=== PATIENT | female | born 1995 | race Caucasian/White ===

== ENCOUNTER → 2020-01-16 | Outpatient (CLI) | payer MEDICAID | LOC: CARD 13:48 | PROVIDERS: ATTEND Family Medicine | DX: I35.1 Nonrheumatic aortic (valve) insufficiency (principal); Z87.74 Personal history of (corrected) congenital malformations of heart and circulatory system | CPT/HCPCS: 93306 ==

== ENCOUNTER → 2020-10-06 | Outpatient (CLI) | payer MEDICAID | LOC: LAB FS 11:15 | PROVIDERS: ATTEND Family Medicine | DX: A74.9 Chlamydial infection, unspecified (principal) | CPT/HCPCS: 36415; 87491; 87591 ==

== ENCOUNTER → 2021-04-06 | Outpatient (CLI) | payer MEDICAID | LOC: LAB FS 16:12 | PROVIDERS: ATTEND Family Medicine | DX: N92.5 Other specified irregular menstruation (principal) | CPT/HCPCS: 36415; 84702 ==

== ENCOUNTER → 2021-04-14 | Outpatient (CLI) | payer MEDICAID | LOC: LABNPT 14:48 | PROVIDERS: ATTEND Registered Nurse Emergency | DX: R35.0 Frequency of micturition (principal) | CPT/HCPCS: 87077; 87088; 87186 ==

== ENCOUNTER → 2021-05-05 | Outpatient (CLI) | payer MEDICAID | LOC: LABNPT 15:34 | PROVIDERS: ATTEND Family Medicine | DX: Z33.1 Pregnant state, incidental (principal) | CPT/HCPCS: 87077; 87088 ==

== ENCOUNTER → 2021-05-12 | Outpatient (CLI) | payer MEDICAID ==
[2021-05-12 15:46] LABS: HEMATOCRIT 38 % (35-52); HEMOGLOBIN 13.6 g/dL (11.5-16.0); MEAN CORPUSCULAR HEMOGLOBIN 30 pg (25-34); MEAN CORPUSCULAR HGB CONC 36 g/dL (32-36); MEAN CORPUSCULAR VOLUME 83 fL (80-99); PLATELET COUNT 274 10^3/uL (130-400)
== END ==
LOC: LAB FS 15:15
PROVIDERS: ATTEND Family Medicine
DX: Z34.91 Encounter for supervision of normal pregnancy, unspecified, first trimester (principal); Z3A.00 Weeks of gestation of pregnancy not specified
CPT/HCPCS: 36415; 85027; 86592; 86703; 86762; 86850; 86900; 86901; 87077; 87088; 87340

== ENCOUNTER → 2021-08-18 | Outpatient (CLI) | payer MEDICAID | LOC: LABNPT 15:10 | PROVIDERS: ATTEND Registered Nurse Emergency | DX: R35.0 Frequency of micturition (principal) | CPT/HCPCS: 87088 ==

== ENCOUNTER → 2021-10-07 | Outpatient (CLI) | payer MEDICAID ==
--- NOTE | 2021-10-07 13:18 | Diagnostic Imaging Report ---
INDICATION: Evaluate growth. TECHNIQUE: Multiple Real-time grayscale images were obtained over the gravid uterus. COMPARISON: None. FINDINGS: There is a single live fetus in a cephalic presentation. The heart rate was recorded at 156 BPM. The placenta is to the right. The amniotic fluid volume is normal. The cervical length is 4.8 cm. Biometrical measurements are as follows: Biparietal 8.4 cm, age 33 weeks 6 days. Head circumference 30.80 cm, age 34 weeks 3 days. Abdominal circumference 27.15 cm, age 31 weeks 2 days. Femur length 5.90 cm, age 30 weeks 6 days. Sonographic estimate age: 32 weeks 5 days. Sonographic estimated date of delivery: 11/27/21. Estimated Weight: 1800 gm (+/- 263 gm). LMP percentile: 44%. heart rate: 156 beats per minute. number: 1 of 1. IMPRESSION: Single live IUP measuring approximately 33 weeks gestational age with an estimated date of confinement sonographically of 11/27/2021. Dictated by: Dictated on workstation # [id number]
== END ==
LOC: RAD 11:00
PROVIDERS: ATTEND Family Medicine
DX: O36.63X0 Maternal care for excessive fetal growth, third trimester, not applicable or unspecified (principal); Z3A.33 33 weeks gestation of pregnancy
CPT/HCPCS: 76805

== ENCOUNTER → 2021-10-28 | Outpatient (CLI) | payer MEDICAID | LOC: CARD 13:00 | PROVIDERS: ATTEND Obstetrics & Gynecology | DX: I07.1 Rheumatic tricuspid insufficiency (principal); Q24.9 Congenital malformation of heart, unspecified | CPT/HCPCS: 93306 ==

== ENCOUNTER → 2021-11-24 | Outpatient (CLI) | payer MEDICAID ==
[~2021-11-24] VITALS: Ht 157.5 cm; Wt 104.5 kg
== END | disposition home or self-care (01) ==
LOC: PREOP 05:29
PROVIDERS: ATTEND Obstetrics & Gynecology
DX: Z01.818 Encounter for other preprocedural examination (principal)

== ENCOUNTER 2021-12-01 02:33 | Inpatient (IN) | payer MEDICAID ==
[~2021-12-01] VITALS: Ht 157.5 cm; Wt 106.4 kg
[2021-12-01] VITALS (9 sets, daily range): BP systolic 97–122; BP diastolic 53–67
--- OUTSIDE RECORDS SUMMARY | 2021-12-01 06:04 | XMS REPORT | Clinical Summary ---
Author Author [facility] Organization [facility] Address Unknown Phone Unavailable Care Team Providers Care Carding Machine Operator Name Role Phone Claudia Sainz MD PCP Source Comments Some departments are not documenting in the electronic medical record. If you d o not see the information that you expected, contact Release of Information in doctors hospital [employer] Information Management department at [phone] for further assistan ce in locating additional records.[facility] Allergies Comments Active Allergy Reactions Severity Noted Date Amoxicillin-Pot UNKNOWN Low 07/02/2018 Clavulanate Penicillins UNKNOWN Low 07/02/2018 Medications End Date Status Medication Sig Dispensed Refills Start Date Active ibuprofen (ADVIL) 200 mg Take 200 mg 0 tablet by mouth every 6 hours as needed for Pain. Take with food. Active ibuprofen (ADVIL PO) Take by 0 mouth as Needed. Active amitriptyline (ELAVIL) 10 Take one 90 tablet 0 09/21/202 mg tablet tablet by 1 mouth at bedtime daily. Start with 1 pill (10 mg) at bedtime. Increase it to 2 pills (20 mg) at bedtime if not side effects noted during the first week and continue on 20 mg at bedtime afterwards Active Problems Problem Noted Date Diastasis recti 07/02/2018 Surgical History Surgery Date Site/Laterality Comments HX HEART VALVE SURGERY SECTION FINGER SURGERY OMPHALOCELE REPAIR 1996 - 07/22/1997 EAR TUBES [id number] Medical History Medical History Date Comments Heart murmur Hydrocephalus (HCC) Dandy Walker malformation (HCC) Family History Medical History Relation Name Comments Cancer Maternal Grandmother Thyroid Disease Mother Relation Name Status Comments Maternal Grandmother Mother Social History Date Tobacco Use Types Packs/Day Years Used Never Smoker Smokeless Tobacco: Never Used Comments Alcohol Use Standard Drinks/Week No 0 (1 standard drink = 0.6 o z pure alcohol) Alcohol Habits Answer Date Recorded How often do you have a drink containing alcohol? Never 07/02/2018 How many drinks containing alcohol do you have on No t asked a typical day when you are drinking? How often do you have six or more drinks on one Not asked occasion? Comment: Not asked Sex Assigned at Date Recorded Female 11/23/2020 3:02 PM CDT Obstetrics History Last Filed Vital Signs Reading Time Taken Comments Vital Sign 113/69 04/22/2020 12:56 PM CDT Blood Pressure 85 04/22/2020 12:56 PM CDT Pulse 36.7 C (98 F) 07/02/2018 1:04 PM [employer]MPER M[employer]ER Temperature 16 07/02/2018 1:04 PM [employer] Respiratory Rate 100% 07/02/2018 1:04 PM [employer]ER M[employer]ER Oxygen Saturation - - Inhaled Oxygen Concentration 82.1 kg (181 lb) 04/22/2020 12:56 PM CDT Weight 157.5 cm (5' 2") 04/22/2020 12:56 PM CDT Height 33.11 04/22/2020 12:56 PM CDT Body Mass Index Plan of Treatment Health Maintenance Due Date Last Done Comments COVID-19 VACCINE (1) 2001 HIV SCREENING 2011 HPV VACCINES (2 - 3-dose 10/10/2013 09/12/2013 series) DTAP/TDAP VACCINES (1 - 2014 Tdap) HEPATITIS C SCREENING 2014 PHYSICAL (COMPREHENSIVE) 2014 EXAM CERVICAL CANCER SCREENING 2017 INFLUENZA VACCINE 05/23/2022 Results Not on filefrom Last 3 Months Insurance Type Payer Benefit Subscriber ID Effective Phone Address Plan / Dates Group Medicaid UHC MEDICAID [place] UHC [id number] 2020- [address] [place] [address] Advance Directives Patient Commercial Loan Assistant Explanation Type Date Recorded Advance Directive/DPOA Care Teams Start Date End Date Carding Machine Operator Relationship Specialty 07/02/18 Claudia Sainz MD PCP - General Family [address] [place] [address] [place] [id number]
[2021-12-01] MEDS ORDERED: METOCLOPRAMIDE INJ 10 MG/2 ML (REGLAN) IV ONE (06:15)
[2021-12-01] MEDS ORDERED: CITRIC ACID/SOB CIT (BICITRA) 30 ML UDC PO ONE (06:15)
[2021-12-01] MEDS ORDERED: FAMOTIDINE 20MG/2ML IV (PEPCID) IV ONE (06:15)
[2021-12-01] MEDS ORDERED: ceFAZolin 2 GM IV Premixed 50 ML IV ONE (06:15)
[2021-12-01] MEDS ORDERED: LACTATED RINGERS 1,000 ML IV SCH (06:15)
[2021-12-01] MEDS: LACTATED RINGERS 1,000 ML IV SCH ×2 (06:38→07:17)
--- NOTE | 2021-12-01 06:59 | History & Physical-OB ---
OB - Chief Complaint & HPI Date/Time Date of Admission: Date of Admission: December 01, 2021 at 05:56 Date seen by a Provider: December 01, 2021 Time Seen by a Provider: 06:55 Chief Complaint/History OB-Reason for Admission/Chief: Section Hx : 2 Hx Para: 1 Expected Date of Delivery: December 06, 2021 Gestational Age in Weeks: 39 Gestational Age in Days: 2 Indication for : desires repeat Allergies and Home Medications Allergies Coded Allergies: Penicillins (Unverified Allergy, Unknown, 11/29/21) amoxicillin (Unverified Allergy, Unknown, 11/29/21) clavulanic acid (Unverified Allergy, Unknown, 11/29/21) Patient Home Medication List Home Medication List Reviewed: Yes No Active Prescriptions or Reported Meds OB - History Hx of Present Care: Yes Ultrasounds: Normal mid trimester US Obstetrical Complications: None Information Induced Hypertension: No Maternal Gestational Diabetes: No Hemorrhage: No Obstetrical History Hx : 2 Hx Para: 1 Hx # Term Pregnancies: 1 Number of Living Children: 1 Hx Termination: No Hx Multiple Gestation: No Hx Ectopic : No Hx Stillbirth: No Hx Complication: No Hx Induced Hypertens: No Hx Maternal Gestational Diabet: No Hx Hemorrhage: No Delivery History Hx Dystocia: No Hx Forceps Assisted Delivery: No Hx Vacuum Extraction Assisted: No Hx Placenta Abnormality: No Hx Distress: No Hx Large For Gestational Age I: No Hx Small for Gestational Age I: No Hx Section: Yes Hx Vaginal Delivery Post C-Sec: No Hx Blood Disorders: No Adverse Rxn to Tranfusion: No Patient Past Medical History congenital heart disease, tricuspid regurgitation, h/o omphalocele Social History/Family History Alcohol Use: Denies Use Smoking Cessation: Never smoker Immunizations GBS Status: Positive OB - Admission Exam Physical Exam Vitals: Vital Signs HEENT: NCAT Lungs: Clear Abdomen: Gravid Extremities: Normal Membranes: Intact Heart Rate: 130's Accelerations: Accelerations Present Decelerations: No Decelerations Short Term Variability: Present [employer] Variability: Average (6-25) Contractions on Admission: None OB - Assessment/Plan/Diagnosis Assessment Assessment: section Admission Dx 39.2wk here for [facility] Admission Status: Inpatient Order (span 2 midnights) Reason for Inpatient Admission: scheduled Plan Plan: Section QASIM TINOCO MD December 01, 2021 06:59
[2021-12-01 07:38] LABS: ALBUMIN 2.9 GM/DL (3.2-4.5); POTASSIUM 4.3 MMOL/L (3.6-5.0)
[2021-12-01 07:39] LABS: CALCIUM 8.4 MG/DL (8.5-10.1)
[2021-12-01 07:42] LABS: BILIRUBIN,TOTAL 0.4 MG/DL (0.1-1.0)
[2021-12-01 07:44] LABS: CREATININE SERUM 0.48 MG/DL (0.60-1.30)
[2021-12-01 07:45] LABS: BASOPHILS % (AUTO) 0 % (0-10); EOSINOPHILS # (AUTO) 0.2 10^3/uL (0.0-0.3); EOSINOPHILS % (AUTO) 2 % (0-10); HEMATOCRIT 39 % (35-52); HEMOGLOBIN 13.1 g/dL (11.5-16.0); LYMPHOCYTES # (AUTO) 1.1 10^3/uL (1.0-4.0); LYMPHOCYTES % (AUTO) 13 % (12-44); MEAN CORPUSCULAR HEMOGLOBIN 29 pg (25-34); MEAN CORPUSCULAR HGB CONC 34 g/dL (32-36); MEAN CORPUSCULAR VOLUME 86 fL (80-99); MONOCYTES # (AUTO) 0.7 10^3/uL (0.0-1.0); MONOCYTES % (AUTO) 8 % (0-12); NEUTROPHILS # (AUTO) 6.3 10^3/uL (1.8-7.8); NEUTROPHILS % (AUTO) 76 % (42-75); PLATELET COUNT 307 10^3/uL (130-400); WHITE BLOOD COUNT 8.3 10^3/uL (4.3-11.0)
[2021-12-01] MEDS ORDERED: NALOXONE 0.4 MG/ML 1 ML (NARCAN) VIAL IV PRN (08:00)
[2021-12-01] MEDS ORDERED: OXYC5CAP18 PO (08:00)
[2021-12-01] MEDS ORDERED: IBUP-1773 PO (08:00)
[2021-12-01] MEDS ORDERED: MEASLES,MUMPS,RUBELLA 1 EA INJ SC SCH (08:00)
[2021-12-01] MEDS ORDERED: TETANUS,DIPTH,PERTUSS P/F (BOOSTRIX) 0.5 ML VIAL IM SCH (08:00)
[2021-12-01] MEDS ORDERED: diphenhydrAMINE 50 MG/ML INJ (BENADRYL) ONE (08:25)
[2021-12-01] MEDS ORDERED: METHYLERGONOVINE 0.2 MG/ML (METHERGINE) AMP ONE (08:34)
--- NOTE | 2021-12-01 09:24 | Cesarean Section Operative ---
Procedure Procedure Note Pre-operative Diagnosis: Yomaira Zapien is a (26 /Para 2 / 1, Gestational Age (wks)39 with [previous ] Post-operative Diagnosis: same [] Procedure: [Repeat] low transverse section Physician: QASIM TINOCO Maintenance Person: [Dylan Davis, MS 3 Estimated blood loss: [600] mL Disposition: [] Stable Findings: Viable [male] infant, Apgars [8/8], weight [8 pounds 2 ounces], intact placenta, 3vc, normal appearing uterus, tubes, and ovaries. Indications:Yomaira booth (26 /Para 2 / 1,Gestational Age (wks)39 presenting for [repeat ]. Procedure Details: The risk benefits alternatives of the procedure were described to the patient. Questions were elicited and answered to her satisfaction. Confirmed with her and her family about her history of penicillin allergy is uncertain with unknown reaction and was from childhood. Believes she has taken Keflex prior without reaction. She was taken to the operating room where anesthesia was obtained without difficulty. She was placed in dorsal spine position with a leftward tilt and prepped and draped in the usual sterile fashion with Schmitt catheter and SCDs in place. An incision was made over her previous vein and still an incision was extended down to the fascia. The fascia was incised bilaterally and this incision was extended laterally with Lutz scissors. The superior aspect of the incision was grasped with postures elevating the rectus muscles dissected off. In a similar fashion the inferior aspect of the incision was grasped with a thrusters elevating the rectus muscles dissected off. The rectus muscles were the midline the peritoneum was identified and entered this incision was extended superiorly and inferiorly with good visualization of the bladder. Bladder blade was inserted and a low transverse uterine incision was made this incision was extended laterally rupture of the amniotic sac was performed with Allis clamps and meconium was noted. The infant was delivered atraumatically although did take an extra second or 2 to align the fetus as the head was angling into her right lower quadrant. Nose and mouth were suctioned and the infant was delivered atraumatically. Cord clamped and cut and the handed off to the waiting nurse team. A cord segment was obtained and cord gases were sent Cord blood was drawn and the placenta was expressed and held. The uterus was exteriorized and cleared of all clots and debris. The uterine incision was closed with a running locked 0 Monocryl suture. The serosal layer had torn cephalad 3 cm and after a second stitch was used to imbricate the low transverse incision a 2-0 Vicryl was used to place a baseball stitch to close in its entirety and hemostasis was obtained. Despite massage and Pitocin we continue to encounter uterine atony. Methergine was administered and a B walton stitch was placed with an 0 chromic chromic stitch for additional tone support. The uterus was returned to the abdomen and again hemostasis was assured. A piece of Interceed was placed over the uterine incision and the peritoneum was closed with a running 2-0 Vicryl suture. Hemostasis was visualized at the rectus layer and the fascia was closed with a running 0 Vicryl running lateral to midline crossing in the midline. The subcutaneous layer was irrigated copiously and hemostasis was assured. The subcu layer was closed with a running plain gut stitch. The skin was closed with subcuticular 4 Monocryl suture. Dermabond dressing was placed. Patient tolerated the procedure well sponge lap needle instrument counts were correct and she was taken to recovery room awake and in stable condition. She received Benadryl after delivery of the for itching however no rash was encountered or appreciated. She received 2 g of Ancef prior to incision Vitals - Labs Vital Signs - I&O Vital Signs Date Time Temp Pulse Resp B/P (MAP) Pulse Ox O2 Delivery O2 Flow Rate FiO2 12/01/21 06:14 36.4 98 18 112/67 (82) 96 Room Air 12/01/21 06:14 36.4 98 18 96 Room Air Labs Laboratory Tests 12/01/21 07:10: Sodium Level 136, Potassium Level 4.3, Chloride Level 106, Carbon Dioxide Level 19L, Anion Gap 11, Blood Urea Nitrogen 5L, Creatinine 0.48L, Estimat Glomerular Filtration Rate 135, BUN/Creatinine Ratio 10, Glucose Level 84, Calcium Level 8.4L, Corrected Calcium 9.3, Total Bilirubin 0.4, Aspartate Amino Transf (AST/SGOT) 12, Alanine Aminotransferase (ALT/SGPT) 12, Alkaline Phosphatase 170H , Total Protein 6.0L, Albumin 2.9L 12/01/21 07:32: White Blood Count 8.3, Red Blood Count 4.56, Hemoglobin 13.1, Hematocrit 39, Mean Corpuscular Volume 86, Mean Corpuscular Hemoglobin 29, Mean Corpuscular Hemoglobin Concent 34, Red Cell Distribution Width 14.1, Platelet Count 307, Mean Platelet Volume 10.0, Immature Granulocyte % (Auto) 1, Neutrophils (%) (Auto) 76H, Lymphocytes (%) (Auto) 13, Monocytes (%) (Auto) 8, Eosinophils (%) (Auto) 2, Basophils (%) (Auto) 0, Neutrophils # (Auto) 6.3, Lymphocytes # (Auto) 1.1, Monocytes # (Auto) 0.7, Eosinophils # (Auto) 0.2, Basophils # (Auto) 0.0, Immature Granulocyte # (Auto) 0.1 QASIM TINOCO MD December 01, 2021 09:24
[2021-12-01] MEDS ORDERED: ONDANSETRON 4 MG/2 ML (SDV) Z0FRAN IVP PRN (09:30)
[2021-12-01] MEDS: HYDROmorphone 2 MG/ML VIAL (DILAUDID) IV ONE ×2 (10:04→10:17)
[2021-12-01] MEDS: ACETAMINOPHEN 500 MG TAB (TYLENOL) PO SCH ×2 (11:01→17:03)
[2021-12-01] MEDS: CATHETER FLUSH 10 ML SYR IV SCH ×2 (11:01→22:32)
[2021-12-01] MEDS: KETOROLAC 30 MG/ML VIAL IV SCH ×3 (11:01→22:32)
[2021-12-01] MEDS: DOCUSATE SODIUM 100 MG (COLACE) CAP PO SCH ×2 (20:06→20:27)
[2021-12-02 00:33] VITALS: BP 95/52
[2021-12-02] MEDS: ACETAMINOPHEN 500 MG TAB (TYLENOL) PO SCH ×4 (00:33→21:36)
[2021-12-02] MEDS: KETOROLAC 30 MG/ML VIAL IV SCH ×2 (04:05→09:48)
[2021-12-02] MEDS: CATHETER FLUSH 10 ML SYR IV SCH (04:05)
[2021-12-02 04:21] VITALS: BP 115/57
[2021-12-02 07:19] LABS: BASOPHILS % (AUTO) 0 % (0-10); EOSINOPHILS # (AUTO) 0.2 10^3/uL (0.0-0.3); EOSINOPHILS % (AUTO) 1 % (0-10); HEMATOCRIT 34 % (35-52); HEMOGLOBIN 11.3 g/dL (11.5-16.0); LYMPHOCYTES # (AUTO) 1.8 10^3/uL (1.0-4.0); LYMPHOCYTES % (AUTO) 14 % (12-44); MEAN CORPUSCULAR HEMOGLOBIN 29 pg (25-34); MEAN CORPUSCULAR HGB CONC 34 g/dL (32-36); MEAN CORPUSCULAR VOLUME 87 fL (80-99); MEAN PLATELET VOLUME 10.1 fL (9.0-12.2); MONOCYTES # (AUTO) 1.2 10^3/uL (0.0-1.0); MONOCYTES % (AUTO) 10 % (0-12); NEUTROPHILS # (AUTO) 9.3 10^3/uL (1.8-7.8); NEUTROPHILS % (AUTO) 74 % (42-75); PLATELET COUNT 289 10^3/uL (130-400); WHITE BLOOD COUNT 12.6 10^3/uL (4.3-11.0)
--- NOTE | 2021-12-02 07:45 | Progress Note ---
Subjective Date Seen by a Provider: December 02, 2021 Subjective/Events-last exam Patient reports she is doing pretty good this morning. Currently bottle feeding, but plans to breastfeed once here breastmilk comes in. Still is having right- sided abdominal pain, which is being well-controlled by current pain meds, except when she tries to get up and walk. Vaginal bleeding has decreased since yesterday; similar to a menstrual period today. No bowel movements or flatus. She has only urinated 2x since the surgery. Pt is drinking adequate amount of fluids and eating well. Reports lower leg swelling, but this has been normal for patient because of varicose veins and . Denies any dizziness, lightheadedness, pre-syncope, chest pain, nausea, or vomiting. Review of Systems Cardiovascular: Edema; No: Chest Pain, Lt Headedness Gastrointestinal: Abdominal Pain; No: Nausea, Vomiting Objective Exam Last Set of Vital Signs Vital Signs Date Time Temp Pulse Resp B/P (MAP) Pulse Ox O2 Delivery O2 Flow Rate FiO2 12/02/21 04:21 36.0 92 18 115/57 (76) 96 Room Air Capillary Refill : Less Than 3 Seconds I&O Intake and Output 12/02/21 00:00 Intake Total 2050 ml Output Total 200 ml Balance 1850 ml Intake IV Total 2050 ml Output Urine Total 200 ml Daily Weight Change No General: Alert, Cooperative, No Acute Distress Lungs: Clear to Auscultation, Normal Air Movement Heart: Regular Rate, No Murmurs Abdomen: Other (Tenderness with deep palpation. Quiet bowel sounds. Uterine fundus at appropriate height. Low transverse incision covered with clean dressing and is healing well -- no erythema or drainage. ) Extremities: No Tenderness/Swelling, Other (bilateral LE edema to knee. SCDs in place. ) Results Lab Laboratory Tests 12/02/21 07:07: White Blood Count 12.6H, Red Blood Count 3.89, Hemoglobin 11.3L, Hematocrit 34L, Mean Corpuscular Volume 87, Mean Corpuscular Hemoglobin 29, Mean Corpuscular Hemoglobin Concent 34, Red Cell Distribution Width 14.2, Platelet Count 289, Mean Platelet Volume 10.1, Immature Granulocyte % (Auto) 1, Neutrophils (%) (Auto) 74, Lymphocytes (%) (Auto) 14, Monocytes (%) (Auto) 10, Eosinophils (%) (Auto) 1, Basophils (%) (Auto) 0, Neutrophils # (Auto) 9.3H, Lymphocytes # (Auto) 1.8, Monocytes # (Auto) 1.2H, Eosinophils # (Auto) 0.2, Basophils # (Auto) 0.0, Immature Granulocyte # (Auto) 0.1 Meds Acetaminophen 1000mg Q6H PO Oxycodone 5mg Q4H PRN PO Toradol 30mg Q6H IV Ibuprofen 600 mg Q6H PO Colace 100mg BID PO Radiology None Procedures Procedures None Assessment/Plan Assessment/Plan Assess & Plan/Chief Complaint Yomaira is a 26 year old female in hospital for repeat section s/p day 1. Mild leukocytosis, likely normal post- changes. Mild anemia, due to blood loss at delivery. No need for transfusion. Plan: Continue inpatient stay. Need bm/flatus before discharge home Starting scheduled ibuprofen, so discontinue toradol. CBC tomorrow morning to access WBC count and anemia Encourage breast feeding. Patient ambulation as tolerated. Regular diet. Pain management: Acetminophen, oxycodone, ibuprofen DVT Prophylaxis: SCDs, encourage patient ambulation Bowel Prophylaxis: SHARON York December 02, 2021 07:45
--- NOTE | 2021-12-02 09:40 | Postpartum Progress Note ---
Note Note Day # 1 Subjective: Patient is without complaints. Ambulating minimally, voiding. Tolerating a regular diet without nausea or vomiting. Normal lochia. Pain is well controlled with oral pain medications. Physical Exam: General - Alert and oriented, no apparent distress Abdomen - Soft, appropriately tender to palpation, non-distended, fundus firm at umbilicus; incision c/d/i Extremities - no edema, negative Heri's bilaterally Assessment: Post- day # 1, status post RLTCS. Recovering well, hemodynamically stable Acute blood loss anemia Plan: Routine care. Encourage breast feeding. Encourage ambulation. Ferrous sulfate supplementation. Plan for discharge tomorrow Vitals - Labs Vital Signs - I&O Vital Signs Date Time Temp Pulse Resp B/P (MAP) Pulse Ox O2 Delivery O2 Flow Rate FiO2 12/02/21 04:21 36.0 92 18 115/57 (76) 96 Room Air 12/02/21 00:33 36.0 87 18 95/52 (66) 96 Room Air 12/01/21 20:27 36.0 91 18 107/58 (74) 96 Room Air 12/01/21 17:02 36.5 94 18 122/53 (76) Room Air 12/01/21 15:00 36.3 91 18 116/59 (78) 98 Room Air 12/01/21 14:30 Room Air 12/01/21 09:57 36.3 77 18 97/64 (75) Room Air 12/01/21 09:57 36.3 18 97/64 (75) 97 Room Air 12/01/21 09:45 36.1 18 110/65 (80) 97 Room Air I & O 12/02/21 07:00 Intake Total 2050 ml Output Total 200 ml Balance 1850 ml Labs Laboratory Tests 12/02/21 07:07: White Blood Count 12.6H, Red Blood Count 3.89, Hemoglobin 11.3L, Hematocrit 34L, Mean Corpuscular Volume 87, Mean Corpuscular Hemoglobin 29, Mean Corpuscular Hemoglobin Concent 34, Red Cell Distribution Width 14.2, Platelet Count 289, Mean Platelet Volume 10.1, Immature Granulocyte % (Auto) 1, Neutrophils (%) (Auto) 74, Lymphocytes (%) (Auto) 14, Monocytes (%) (Auto) 10, Eosinophils (%) (Auto) 1, Basophils (%) (Auto) 0, Neutrophils # (Auto) 9.3H, Lymphocytes # (Auto) 1.8, Monocytes # (Auto) 1.2H, Eosinophils # (Auto) 0.2, Basophils # (Auto) 0.0, Immature Granulocyte # (Auto) 0.1 Microbiology 12/01/21 MRSA Screen - Final, Complete MRSA not isolated SARAVANAN RILEY RESIDENTIAL GREEN BUILDING DESIGNER December 02, 2021 09:40
[2021-12-02 09:46] VITALS: BP 115/58
[2021-12-02] MEDS: DOCUSATE SODIUM 100 MG (COLACE) CAP PO SCH ×2 (09:48→21:35)
[2021-12-02] MEDS: IBUPROFEN 600 MG (MOTRIN) TAB PO SCH ×2 (15:54→21:35)
[2021-12-02 15:57] VITALS: BP 108/57
[2021-12-02 21:43] VITALS: BP 124/61
[2021-12-03 04:06] VITALS: BP 126/57
[2021-12-03] MEDS: ACETAMINOPHEN 500 MG TAB (TYLENOL) PO SCH ×2 (04:07→09:49)
[2021-12-03] MEDS: IBUPROFEN 600 MG (MOTRIN) TAB PO SCH ×2 (04:08→09:48)
--- NOTE | 2021-12-03 08:46 | Discharge Inst-Women's Service ---
Discharge Inst-Women's Serv Depart Medication/Instructions New, Converted or Re-Newed RX: Transmitted to Pharmacy Consults/Follow Up Additional Follow Up: Yes (1wk incision check & 6wk appt) Activity Activity: Activity as Tolerated Driving Instructions: No Driving for 1 Week NO SMOKING: NO SMOKING Nothing Inside Vagina: No Douching, No Busby, No Tampons Diet Discharge Diet: No Restrictions Symptoms to Report to DrJeri: Bleeding Excessive, Fever Over 101 Degrees F, Vaginal Bleeding Increase For Any Problems or Questions: Contact Your Physician Skin/Wound Care Infection Signs and Symptoms: Increased Redness, Foul Odor of Wound, Increased Drainage, Temperature Above 101 F Operative Area Clean and Dry: Keep Incision Clean/Dry Stitches/Rick/Dermabond: Dermabond Bathing Instructions: SARAVANAN Grady APRN December 03, 2021 08:46
--- NOTE | 2021-12-03 08:47 | Postpartum Progress Note ---
Note Note Day # 2 Subjective: Patient is without complaints. Ambulating, voiding. Tolerating a regular diet without nausea or vomiting. Normal lochia. Pain is well controlled with oral pain medications. Physical Exam: General - Alert and oriented, no apparent distress Abdomen - Soft, appropriately tender to palpation, non-distended, fundus firm at umbilicus; incision c/d/i Extremities - no edema, negative Heri's bilaterally Assessment: Post- day # 2, status post RLTCS. Recovering well, hemodynamically stable Acute blood loss anemia Plan: Routine care. Encourage breast feeding. Encourage ambulation. Ferrous sulfate supplementation. Plan for discharge today Vitals - Labs Vital Signs - I&O Vital Signs Date Time Temp Pulse Resp B/P (MAP) Pulse Ox O2 Delivery O2 Flow Rate FiO2 12/03/21 04:06 36.4 108 20 126/57 (80) 95 Room Air 12/02/21 21:43 36.1 89 20 124/61 (82) 96 Room Air 12/02/21 15:57 36.2 95 20 108/57 (74) Room Air 12/02/21 09:46 36.0 93 20 115/58 (77) 97 Room Air Labs Microbiology 12/01/21 MRSA Screen - Final, Complete MRSA not isolated SARAVANAN RILEY SOLAR SALES ENERGY ADVISOR December 03, 2021 08:47
[2021-12-03] MEDS: DOCUSATE SODIUM 100 MG (COLACE) CAP PO SCH (09:49)
[2021-12-03 09:54] VITALS: BP 118/67
[2021-12-03] MEDS ORDERED: OXC5T PO (14:07)
== END 2021-12-03 14:16 | disposition home or self-care (01) | DRG 787 ==
LOC: LDRP 05:56
PROVIDERS: ADMIT Obstetrics & Gynecology; ATTEND Obstetrics & Gynecology
PROC: 10D00Z1 Extraction of Products of Conception, Low, Open Approach (ICD-10-PCS; principal; 2021-12-01 07:51)
DX: O34.211 Maternal care for low transverse scar from previous cesarean delivery (principal); D62 Acute posthemorrhagic anemia; Z3A.39 39 weeks gestation of pregnancy; Z37.0 Single live birth; O90.81 Anemia of the puerperium
CPT/HCPCS: 36415; 80053; 85025; 86850; 86900; 86901; 87081; 94664

== ENCOUNTER → 2021-12-15 | Outpatient (CLI) | payer MEDICAID ==
[~2021-12-15] MED LIST: IBUP-1773 PO; OXC5T PO; OXYC5CAP18 PO
[2021-12-15 12:16] LABS: BASOPHILS % (AUTO) 1 % (0-10); EOSINOPHILS # (AUTO) 0.4 10^3/uL (0.0-0.3); EOSINOPHILS % (AUTO) 6 % (0-10); HEMATOCRIT 39 % (35-52); LYMPHOCYTES % (AUTO) 15 % (12-44); MEAN CORPUSCULAR HEMOGLOBIN 28 pg (25-34); MEAN CORPUSCULAR HGB CONC 34 g/dL (32-36); MEAN CORPUSCULAR VOLUME 84 fL (80-99); MEAN PLATELET VOLUME 9.2 fL (9.0-12.2); MONOCYTES # (AUTO) 0.4 10^3/uL (0.0-1.0); MONOCYTES % (AUTO) 6 % (0-12); NEUTROPHILS # (AUTO) 4.8 10^3/uL (1.8-7.8); NEUTROPHILS % (AUTO) 72 % (42-75); PLATELET COUNT 367 10^3/uL (130-400); WHITE BLOOD COUNT 6.7 10^3/uL (4.3-11.0)
[2021-12-15 12:43] LABS: BILIRUBIN,TOTAL 0.5 MG/DL (0.1-1.0); CALCIUM 8.8 MG/DL (8.5-10.1); CREATININE SERUM 0.49 MG/DL (0.60-1.30)
[2021-12-15 12:44] LABS: ALBUMIN 3.8 GM/DL (3.2-4.5); TOTAL PROTEIN 6.9 GM/DL (6.4-8.2)
== END ==
LOC: LAB FS 11:57
PROVIDERS: ATTEND Family Medicine
DX: L25.9 Unspecified contact dermatitis, unspecified cause (principal); R60.0 Localized edema
CPT/HCPCS: 36415; 80053; 85025